=== PATIENT | male | born 1950 | race Two or more races ===

== ENCOUNTER → 2024-05-15 | Outpatient (CLI) | payer OTHER, SELFPAY ==
[2024-05-15 14:53] LABS: Prostate Specific Antigen < 0.10 ng/mL (0-4.00)
== END | disposition home or self-care (01) ==
PROVIDERS: PCP Family Medicine; Referring Provider Urology; Visit Provider Urology
DX: C61 Malignant neoplasm of prostate (principal)
CPT/HCPCS: 36415; 84153

== ENCOUNTER → 2024-05-24 | Outpatient (BNVA) | payer OTHER, SELFPAY | END | disposition home or self-care (01) | PROVIDERS: PCP Family Medicine; Referring Provider Family Medicine; Visit Provider Urology | DX: C61 Malignant neoplasm of prostate (principal); N48.6 Induration penis plastica; E66.9 Obesity, unspecified; Z68.27 Body mass index [BMI] 27.0-27.9, adult; E78.00 Pure hypercholesterolemia, unspecified; K21.9 Gastro-esophageal reflux disease without esophagitis | CPT/HCPCS: 81003; 99212; G0463 ==

== ENCOUNTER → 2024-08-09 | Outpatient (CLI) | payer OTHER, SELFPAY ==
[2024-08-09 09:54] LABS: Basophils % (Auto) 1 % (0-2.5); Eosinophils # (Auto) 0.2 Thou/mm3 (0.0-0.5); Eosinophils % (Auto) 3 % (0-10); Hematocrit 38.2 % (41.0-53.0); Hemoglobin 13.1 g/dL (13.5-16.0); Immature Granulocytes % (Auto) 0 % (0-0); Immature Granulocytes Auto 0.01 Thou/mm3 (0.00-0.00); Lymphocytes # (Auto) 2.4 Thou/mm3 (1.0-4.8); Lymphocytes % (Auto) 35 % (10-50); Mean Corpuscular HGB Conc 34.3 g/dl (31.0-37.0); Mean Corpuscular Hemoglobin 29.9 pg (25.0-35.0); Mean Corpuscular Volume 87 fL (80-100); Monocytes # (Auto) 0.5 Thou/mm3 (0.0-0.8); Monocytes % (Auto) 8 % (0-12); Neutrophils # (Auto) 3.6 Thou/mm3 (1.8-7.7); Neutrophils % (Auto) 53 % (37-80); Nucleated Red Blood Cell % 0 /100 WBC (0); Platelet Count 240 Thou/mm3 (140-440); RDW Standard Deviation 43.1 fL (35.1-43.9); Red Blood Count 4.38 Miln/mm3 (4.50-5.90); White Blood Count 6.7 Thou/mm3 (3.8-10.6)
[2024-08-09 10:24] LABS: Alanine Aminotransferase 25 U/L (10-49); Albumin, Serum 4.3 gm/dL (3.4-4.8); Albumin/Globulin Ratio 1.6 (1.2-2.2); Alkaline Phosphatase 60 U/L (46-116); Anion Gap 7 (7-16); Aspartate Amino Transferase 19 U/L (0-34); BUN/Creatinine Ratio 16 Ratio (12-20); Bilirubin,Total 0.5 mg/dL (0.3-1.2); Blood Urea Nitrogen 19 mg/dL (9-23); Calcium 9.2 mg/dL (8.3-10.6); Calcium (Corrected) 9.2 mg/dL (8.5-10.1); Cardiac Risk Estimate 4.4 RATIO (4.0-6.7); Chloride 107 mMol/L (98-107); Cholesterol 173 mg/dL (132-200); Creatinine (Component) 1.2 mg/dL (0.6-1.3); Globulin 2.7 gm/dL (2.3-3.5); Glucose 118 mg/dL (74-106); HDL Cholesterol 39 mg/dL (40-60); LDL Cholesterol,Calculated 103 mg/dL (0-130); Osmolality,Calculated 286 (275-295); Potassium 4.2 mMol/L (3.4-5.1); Sodium 142 mMol/L (136-145); Thyroid Stimulating Hormone 3.47 uIU/mL (0.55-4.78); Triglycerides 156 mg/dL (30-150); eGFR > 60 See Note
== END | disposition home or self-care (01) ==
LOC: COPL 08:21
PROVIDERS: PCP Family Medicine; Referring Provider Family Medicine; Visit Provider Family Medicine
DX: E78.2 Mixed hyperlipidemia (principal)
CPT/HCPCS: 36415; 80053; 80061; 84443; 85025

== ENCOUNTER → 2025-01-08 | Outpatient (CLI) | payer OTHER, SELFPAY ==
[2025-01-08 09:51] LABS: Glucose Estimated Average 120 mg/dL (80-131); Hemoglobin A1C 5.8 % Hgb (4.8-6.0)
[2025-01-08 09:57] LABS: Prostate Specific Antigen < 0.10 ng/mL (0-4.00)
== END | disposition home or self-care (01) ==
LOC: COPL 08:41
PROVIDERS: PCP Family Medicine; Referring Provider Family Medicine; Visit Provider Urology
DX: Z00.00 Encounter for general adult medical examination without abnormal findings (principal); C61 Malignant neoplasm of prostate
CPT/HCPCS: 36415; 83036; 84153

== ENCOUNTER → 2025-01-13 | Outpatient (BNVA) | payer OTHER, SELFPAY | END | disposition home or self-care (01) | PROVIDERS: PCP Family Medicine; Referring Provider Family Medicine; Visit Provider Urology | DX: C61 Malignant neoplasm of prostate (principal); E78.00 Pure hypercholesterolemia, unspecified; K21.9 Gastro-esophageal reflux disease without esophagitis | CPT/HCPCS: 81003; 99212; G0463 ==